=== PATIENT | female | born 2000 | race Caucasian/White ===

== ENCOUNTER 2020-03-30 14:39 | Emergency (ER) | payer SELFPAY ==
[~2020-03-30] VITALS: Ht 163.8 cm; Wt 72.6 kg
[2020-03-30 14:42] VITALS: BP 123/75
--- NOTE | 2020-03-30 15:20 | NUR ---
LIGHTS DIMMED FOR PT
--- NOTE | 2020-03-30 15:20 | NUR ---
20 YEAR OLD FEMALE COMPLAINS OF HEADACHE X THURSDAY. PT STATES PAIN IS GETTING GRADUALLY WORSE, DENIES ANY TRAUMA AND STATES HAS NOT HAPPENED BEFORE. PT DENIES NAUSEA, VOMITTING DIARRHEA. PT DENIES TAKING MEDS FOR REMEDY. PT AOX4, BREATHING EVEN AND UNLABORED, SKIN WARM AND DRY. BED IN LOWEST POSITION, LOCKED, BED RAIL UPX1. PMH - DENIES ALLERGIES - NKA
[2020-03-30] MEDS ORDERED: KETOROLAC 30 MG/ML VIAL IM ONE (15:35)
--- NOTE | 2020-03-30 16:00 | NUR ---
Patient discharged with v/s stable. Written and verbal after care instructions about tension headaches given and explained. Patient alert, oriented and verbalized understanding of instructions. Ambulatory with steady gait. All questions addressed prior to discharge. ID band removed. Patient advised to follow up with PMD. Rx of naproxen given. Patient educated on indication of medication including possible reaction and side effects. Opportunity to ask questions provided and answered.
[2020-03-30 16:05] VITALS: BP 123/75
== END 2020-03-30 16:00 | disposition home or self-care (01) ==
LOC: MED 14:39
DX: G44.209 Tension-type headache, unspecified, not intractable (principal)
CPT/HCPCS: 96372; 99283; J1885

== ENCOUNTER 2021-03-17 07:54 | Emergency (ER) | payer OTHER, MEDICAID ==
[~2021-03-17] VITALS: Ht 167.6 cm; Wt 65.8 kg
[2021-03-17 08:03] VITALS: BP 123/64
--- NOTE | 2021-03-17 08:10 | NUR ---
PT AMB TO [facility]
[2021-03-17] MEDS ORDERED: KETOROLAC 60 MG/2 ML VIAL IM ONE (08:15)
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
--- NOTE | 2021-03-17 08:26 | NUR ---
PT TAKEN TO X RAY VIA W/C, ACCOMPANIED BY [employer].
[2021-03-17 09:16] VITALS: BP 121/70
[2021-03-17] MEDS ORDERED: IBUP-2213 PO (09:16)
[2021-03-17] MEDS ORDERED: ACET-8386 PO (09:16)
== END 2021-03-17 09:17 | disposition home or self-care (01) ==
LOC: MED 07:54
DX: R07.89 Other chest pain (principal); R06.02 Shortness of breath; V89.2XXA Person injured in unspecified motor-vehicle accident, traffic, initial encounter; Y93.89 Activity, other specified; Y92.89 Other specified places as the place of occurrence of the external cause; Y99.8 Other external cause status
CPT/HCPCS: 71045; 81002; 81025; 96372; 99283; J1885

== ENCOUNTER 2021-11-26 18:50 | Emergency (ER) | payer SELFPAY ==
[~2021-11-26] VITALS: Ht 167.6 cm; Wt 69.4 kg
[~2021-11-26 18:50] MED LIST: ACET-8386 PO; IBUP-2213 PO
[2021-11-26 19:08] VITALS: BP 118/69
[2021-11-26 19:49] LABS: BASOPHILS % (AUTO) 0.3 % (0.0-2.0); EOSINOPHILS % (AUTO) 0.7 % (0.0-4.0); HEMATOCRIT 37.1 % (36-48); HEMOGLOBIN 12.1 g/dL (12.0-16.0); LYMPHOCYTES # (AUTO) 0.9 K/uL (2.5-16.5); LYMPHOCYTES % (AUTO) 13.6 % (20.5-51.1); MEAN CORPUSCULAR HEMOGLOBIN 28 pg (27-31); MEAN CORPUSCULAR HGB CONC 33 g/dL (33-37); MEAN CORPUSCULAR VOLUME 85.2 fL (80-94); MONOCYTES # (AUTO) 0.8 K/uL (0.8-1.0); MONOCYTES % (AUTO) 12.7 % (1.7-9.3); NEUTROPHILS # (AUTO) 4.7 K/uL (1.8-7.7); NEUTROPHILS % (AUTO) 72.7 % (42.2-75.2); PLATELET COUNT (AUTO) 231 K/uL (140-450); RED BLOOD CELL COUNT(AUTO) 4.35 MIL/uL (4.20-5.40); RED CELL DISTRIBUTION WIDTH 14.4 % (11.6-13.7); WHITE BLOOD COUNT (AUTO) 6.5 K/uL (4.8-10.8)
[2021-11-26 19:57] LABS: ALBUMIN 3.9 g/dL (3.4-5.0); ANION GAP 10.5 (8-16); CARBON DIOXIDE 26.3 mmol/L (21-32); CREATININE 0.8 mg/dL (0.6-1.3); POTASSIUM 3.8 mmol/L (3.5-5.1)
[2021-11-26 20:34] LABS: TOTAL BILIRUBIN 0.5 mg/dL (0.0-1.0)
--- NOTE | 2021-11-26 22:30 | NUR ---
21 Y.O F PT, STATES SHE HAS BEEN HAVING ABDOMINAL PAIN AND N/V SINCE Thursday11/23/21. PT ALSO STATES SHE HAS NOT BEEN ABLE TO HOLD ANY FOOD DOWN AND WILL VOMIT SOON AFTER EATING ANYTHING. DENIES SOB, CHEST PAIN OR ANY OTHER MEDICAL HISTORY.
[2021-11-26] MEDS ORDERED: DICYCLOMINE 20 MG/2 ML VIAL IM ONE (23:05)
[2021-11-26] MEDS ORDERED: NACL 0.9% 1,000 ML IV ONE (23:05)
[2021-11-26] MEDS ORDERED: KETOROLAC 15 MG/ML VIAL IVP ONE (23:05)
[2021-11-26] MEDS ORDERED: ONDANSETRON 4 MG/2 ML VIAL IVP ONE (23:05)
--- NOTE | 2021-11-26 23:23 | NUR ---
PATIENT MOVED TO BED 11
[2021-11-27] MEDS ORDERED: ONDA-188 PO (00:17)
[2021-11-27] MEDS ORDERED: BEN10 PO (00:17)
[2021-11-27 00:46] VITALS: BP 108/69
--- NOTE | 2021-11-27 00:48 | NUR ---
Patient discharged with v/s stable. Written and verbal after care instructions given and explained. Patient alert, oriented and verbalized understanding of instructions. Ambulatory with steady gait. All questions addressed prior to discharge. ID band removed. Patient advised to follow up with PMD. Rx of ONDANSETRON & DICYCLOMINE given. Patient educated on indication of medication including possible reaction and side effects. Opportunity to ask questions provided and answered.
== END 2021-11-27 00:48 | disposition home or self-care (01) ==
LOC: MED 18:50
DX: R10.9 Unspecified abdominal pain (principal); R11.2 Nausea with vomiting, unspecified; R19.7 Diarrhea, unspecified; Z79.899 Other long term (current) drug therapy
CPT/HCPCS: 36415; 74176; 80053; 81002; 81025; 85025; 96361; 96372; 96374; 96375; 99285; J0500; J1885; J2405; J7030; 99284